=== PATIENT | male | born 1975 | race Caucasian/White ===

== ENCOUNTER 2023-12-07 18:15 | Emergency (ER) | payer OTHER ==
[~2023-12-07] VITALS: Ht 162.6 cm; Wt 100.2 kg
[2023-12-07 18:18] VITALS: BP_SYST 150; PULSE 90; RESP 16; TEMP 97.8; O2SAT 98
[2023-12-07 18:34] VITALS: BP_SYST 150; PULSE 90; RESP 16; TEMP 97.8; O2SAT 98
== END 2023-12-07 18:34 | disposition home or self-care (01) ==
LOC: SED 18:15
DX: S00.81XA Abrasion of other part of head, initial encounter (principal); W22.8XXA Striking against or struck by other objects, initial encounter; Y93.89 Activity, other specified; Y92.89 Other specified places as the place of occurrence of the external cause; Y99.8 Other external cause status
CPT/HCPCS: 99281